=== PATIENT | male | born 1975 | race Caucasian/White ===

== ENCOUNTER 2016-10-20 02:58 | Inpatient (IN) | payer SELFPAY ==
[~2016-10-20] VITALS: Ht 188 cm; Wt 100.5 kg
[2016-10-20 03:25] LABS: BASOPHIL COUNT 0.1 K/uL (0-0.1); EOSINOPHIL (%) 0 % (0-5); HEMATOCRIT 50.4 % (38.0-50.0); IMMATURE GRANULOCYTE (%) 0.4 % (0.0-0.7); IMMATURE GRANULOCYTE COUNT 0.1 K/uL; INSTRUMENT ABS NEUTROPHIL CT 15.6 K/uL; LYMPHOCYTE COUNT 1.4 K/uL (1.0-2.8); MCH 29.2 PG (29.0-34.0); MCHC 32.7 G/DL (30.0-36.0); MEAN PLAT.VOLUME 10.5 uM^3 (9.0-12.4); MONOCYTE COUNT 1.3 K/uL (0-0.8); NEUTROPHIL (%) 84.7 % (45-76); NEUTROPHIL COUNT 15.6 K/uL (1.8-6.4); PLATELET COUNT 306 K/uL (156-360); RBC DIS.WIDTH-CV 13.8 % (11.8-14.6); RBC DIS.WIDTH-SD 45.1 % (39-53); RED BLOOD COUNT 5.66 M/uL (4.00-5.50); WHITE BLOOD COUNT 18.4 K/uL (4.1-10.2)
[2016-10-20 03:35] LABS: AMYLASE 63 IU/L (1-118); CHLORIDE 104 mEq/L (99-109); POTASSIUM 4.1 mEq/L (3.7-5.4); SODIUM 140 mEq/L (136-147)
[2016-10-20 03:37] LABS: GLUCOSE 127 mg/dL (70-99)
[2016-10-20 03:38] LABS: ANION GAP 14 MEQ/L (2-14)
[2016-10-20 03:40] LABS: GFR ESTIMATE (CALCULATED) 55 mL/min/; SERUM ETHYL ALCOHOL < 10 mg/dL
[2016-10-20 03:41] LABS: UREA NITROGEN (BUN) 16 mg/dL (9-23)
[2016-10-20 03:44] LABS: LIPASE 39 U/L (1.0-51.0)
[2016-10-20 03:45] LABS: TROP-I INTERPRETATION NEGATIVE; TROPONIN-I 0.03 ng/mL (0.0-0.30)
[2016-10-20] MEDS ORDERED: KEFLEX500 MG PO (05:30)
[2016-10-20 06:48] LABS: ADD MIUA? NO; BILIRUBIN NEGATIVE; BLOOD NEGATIVE; COLOR YELLOW ((YELLOW)); GLUCOSE (STRIP) NEGATIVE; KETONES 20; LEUKOCYTES NEGATIVE; NITRITE NEGATIVE; PROTEIN (STRIP) NEGATIVE; UCUL ADDED? NO; UROBILINOGEN 0.2 MG/DL (0.2-1.0)
[2016-10-20 07:01] LABS: AMPHETAMINE NEGATIVE (500 ng/mL); BARBITURATES NEGATIVE (200 ng/mL); BENZODIAZEPINES NEGATIVE (150 ng/mL); COCAINE NEGATIVE (150 ng/mL); INTERNAL CONTROLS VALID? YES; METHADONE NEGATIVE (200 ng/mL); METHAMPHETAMINE NEGATIVE (500 ng/mL); OPIATES (MORPHINE) NEGATIVE (100 ng/mL); OXYCODONE NEGATIVE (100 ng/mL); PHENCYCLIDINE NEGATIVE (25 ng/mL); PROPOXYPHENE NEGATIVE (300 ng/mL); THC CANNABINOIDS NEGATIVE (50 ng/mL); TRICYCLIC ANTIDEPRESSANTS NEGATIVE (300 ng/mL)
[2016-10-20 07:10] LABS: SPECIFIC GRAVITY 1.058 (1.000-1.030)
[2016-10-20 08:17] VITALS: BP 142/77
[2016-10-20 15:57] VITALS: BP 115/59
[2016-10-21 07:39] VITALS: BP 113/63
[2016-10-21 15:59] VITALS: BP 126/63
[2016-10-22 07:45] VITALS: BP 121/67
== END 2016-10-22 12:00 | disposition home or self-care (01) | DRG 882 ==
LOC: EME → TRA 02:58 → EME 02:58 → 1WEST 06:55 → EDOF 06:55 → 1WEST 08:12
PROVIDERS: Emergency Medicine
PROC: 0HQ4XZZ Repair Neck Skin, External Approach (ICD-10-PCS; principal; 2016-10-20)
DX: F43.25 Adjustment disorder with mixed disturbance of emotions and conduct (principal); X78.1XXA Intentional self-harm by knife, initial encounter; F32.9 Major depressive disorder, single episode, unspecified; Y93.9 Activity, unspecified; Y92.89 Other specified places as the place of occurrence of the external cause; Y99.9 Unspecified external cause status
CPT/HCPCS: 70450; 70498; 71010; 80048; 81003; 82150; 83690; 84484; 85025; 86850; 86900; 86901; 90839; 97150 GO; 97165 GO; 99281; 99284; G0480; J7030